=== PATIENT | male | born 1960 | race Caucasian/White ===

== ENCOUNTER 2025-04-17 12:09 | Emergency (ER) | payer OTHER ==
[2025-04-17 12:22] VITALS: RESP 18; BMI 30.4
[2025-04-17] MEDS ORDERED: MAG HYDROX/AL HYDROX/SIMETH 30 ML UNIT-DOSE CUP ONE (13:36)
[2025-04-17] MEDS: LACTATED RINGERS SOLUTION 1000 ML INFUS.BAG IV ONE (13:43)
[2025-04-17] MEDS: MAG HYDROX/AL HYDROX/SIMETH 30 ML UNIT-DOSE CUP PO ONE (13:43)
[2025-04-17 14:02] LABS: CO2 26.0 mmol/L (21-32); GLUCOSE,RANDOM 115.0 mg/dL (74-106)
[2025-04-17 14:04] LABS: CREATININE 0.9 mg/dL (0.55-1.3); SGOT/AST 26.0 U/L (15-37); SGPT/ALT 39.0 U/L (13-61)
[2025-04-17 14:06] LABS: TOT PROT 7.8 g/dl (6.4-8.2)
[2025-04-17 14:07] LABS: ALK PHOS 104.0 U/L (45-117)
[2025-04-17 14:27] LABS: ABSOLUTE IMMATURE GRANULOCYTES 0.07 x10^3/uL (0.0-0.031); BASOPHILS # 0.02 x10^3/uL (0.01-0.08); EOSINOPHIL % 0.1 % (0.8-7.0); EOSINOPHILS # 0.01 x10^3/uL (0.04-0.54); MCHC 32.8 g/dl (32.3-36.5); MEAN CELL VOLUME 81.7 fl (79.0-92.2); MEAN PLT VOLUME 9.6 fl (9.4-12.4); MONOCYTE # 0.72 x10^3/uL (0.30-0.82); MONOCYTE % 5.8 % (5.3-12.2); RDW 14.7 % (12.2-16.4)
[2025-04-17 15:51] VITALS: BP 166/86; PULSE 75; TEMP 98.7
[2025-04-17 18:37] LABS: HIV INTERPRETATION NEGATIVE (NEGATIVE)
[2025-04-17 21:29] LABS: HCV DIAGNOSTIC IN-HOUSE W/RFLX NON-REACTIVE (NONREACTIVE)
== END 2025-04-17 17:53 | disposition home or self-care (01) ==
LOC: JER 12:09
DX: K21.9 Gastro-esophageal reflux disease without esophagitis (principal); R10.13 Epigastric pain; R11.2 Nausea with vomiting, unspecified
CPT/HCPCS: 36415; 71045-TC-FY; 80053; 83690; 84484; 85025; 86803; 87389; 93005; 93010; 99285-25